=== PATIENT | female | born 1960 | race Caucasian/White ===

== ENCOUNTER → 2020-01-01 08:30 | Outpatient (BNVA) | payer BC, SELFPAY | PROVIDERS: PCP Internal Medicine; Visit Provider Orthopaedic Surgery | DX: Z76.89 Persons encountering health services in other specified circumstances (principal) ==

== ENCOUNTER 2020-11-04 08:13 | Outpatient (REF) | payer BC, SELFPAY ==
--- NOTE | ~2020-11-04 | MM_ITS ---
EXAMINATION: MM SCREENING DIGITAL BREAST TOMOSYNTHESIS, BILATERAL CLINICAL INFORMATION: Screening. Asymptomatic. The lifetime risk of breast cancer based on the Tyrer-Cuzick Model is 4%. COMPARISON: Mammography: 10/30/2019, 10/20/2018, 03/09/2016 TECHNIQUE: Digital breast tomosynthesis is performed in both the craniocaudal and mediolateral oblique views along with computer-aided detection (CAD). Synthesized 2D images are generated from the tomosynthesis. FINDINGS: There are scattered areas of fibroglandular density (ACR BI-RADS breast composition Category b). There are no significant masses, abnormal calcifications, or other abnormalities. Parenchymal pattern is similar to prior studies. No developing density. No significant changes. MM/MM tomosynthesis screening BI IMPRESSION: No mammographic evidence of malignancy. ASSESSMENT: BI-RADS 1: Negative RECOMMENDATION: Routine annual mammography screening. This patient's information was entered into a reminder system with a target due date for their next mammogram.
== END 2020-11-04 08:14 | disposition home or self-care (01) ==
LOC: HO.MAMMO 08:13
PROVIDERS: PCP Internal Medicine; Visit Provider Internal Medicine
DX: Z12.31 Encounter for screening mammogram for malignant neoplasm of breast (principal)
CPT/HCPCS: 77063; 77067

== ENCOUNTER 2025-03-14 13:52 | Observation (INO) | payer SELFPAY ==
[2025-03-14] VITALS (7 sets, daily range): BP systolic 132–161; BP diastolic 60–99; PULSE 84–100; RESP 18–24; TEMP 36.4–36.7; O2SAT 97–100; BMI 18.8
--- NOTE | ~2025-03-14 | CT_ITS ---
CLINICAL HISTORY: aorta dissection Exam: Contrast-enhanced CTA abdomen and pelvis with multiplanar reformats. Comparison: Same-day CT abdomen and pelvis. Findings: Abdomen CTA: Lung bases are clear. Liver is free of gross focal lesions and ductal dilatation. Gallbladder is absent. Spleen appears unremarkable. Pancreas and adrenal glands appear unremarkable. Kidneys appear unremarkable. No free intraperitoneal fluid or retroperitoneal masses or adenopathy. Bowel loops reveal no abnormal wall thickening or distention. Minimal colonic diverticulosis is present, without CT evidence of diverticulitis. Vascular: Abdominal aorta is within normal limits caliber with moderate calcific athero sclerosis. Celiac artery, superior mesenteric artery, and bilateral renal arteries with accessory left renal artery appear patent. Inferior mesenteric artery is patent. CTA pelvis: Uterus and adnexal structures are stable. Urinary bladder is free of gross filling defects. No pelvic masses, fluid or adenopathy. Vascular structures reveal severe stenoses of the right common iliac artery origin (6; 258 -272, also seen on 8; 32-36). More distally the bilateral common and external iliac arteries are opacified and normal caliber. Internal iliac arteries and branches are patent and normal caliber. Osseous structures reveal no destructive osseous lesions. Bilateral intact appearing hip arthroplasty hardware is present. Impression: 1. 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 2. Otherwise, no evidence of aortic dissection or acute aortic syndrome. This document has been electronically signed by: Onur Earl MD on 03/14/2025 20:35:22
--- NOTE | ~2025-03-14 | CT_ITS ---
CLINICAL HISTORY: flank pain + elevated LFTs CT abdomen and pelvis with IV contrast. COMPARISON: None provided. FINDINGS: Partially visualized lung bases are unremarkable. Cholecystectomy with associated moderate intrahepatic biliary ductal dilatation. No choledocholithiasis identified. No focal hepatic lesion. Normal spleen. Normal pancreas. Normal adrenal glands. Symmetric renal enhancement. Left renal cystic lesion measuring 0.3 cm, too small to further characterize. No hydronephrosis. Appendectomy. Mild colonic stool burden. No bowel obstruction. Mild distal colonic diverticulosis without evidence of diverticulitis. Thickening of the mucosa of the sigmoid colon in the vicinity of several diverticuli. No mesenteric or retroperitoneal lymphadenopathy. Moderate aortoiliac atherosclerotic vascular calcifications. Bilateral total hip arthroplasties partially visualized. Artifact from the arthroplasties limits evaluation of the portions of the pelvis. Visualized portions of the urinary bladder unremarkable. No adnexal mass identified. Grade 1 anterolisthesis of L4 on L5, degenerative. [id number] lower lumbar spondylosis. No acute fracture or suspicious bone lesion. IMPRESSION: 1. Moderate intrahepatic biliary ductal dilatation. No radiopaque choledocholithiasis identified. Consider MRCP for further characterization. 2. Distal colonic diverticulosis without evidence of diverticulitis. Thickening of the mucosa of the distal sigmoid colon favored to represent diverticulosis coli. Recommend correlation with recent colonoscopy. This document has been electronically signed by: Oscar Connor MD on 03/14/2025 17:58:00
--- NOTE | ~2025-03-14 | XR_ITS ---
EXAMINATION: XR FOOT, LEFT CLINICAL INFORMATION: pain, injury COMPARISON: None available. TECHNIQUE: AP, lateral, and oblique views of the left foot. FINDINGS: The bones and soft tissues are normal. No fracture. Alignment is anatomic. Joint spaces are maintained. XR/XR foot LT min 3V IMPRESSION: Unremarkable left foot Electronically signed by: Yevgeniy Wilson MD 03/14/2025 02:48 PM EST
--- NOTE | ~2025-03-14 | US_ITS ---
CLINICAL HISTORY: choledoco evaluation US abdomen limited. COMPARISON: CT abdomen and pelvis dated 03/14/25 at 17:14 EST Technique: Real time sonographic imaging, including color-flow imaging, was performed by the licensed clinical psychologist. Multiple insurance claim representative static images were saved for review. FINDINGS: Status post cholecystectomy. Common bile duct: 6 mm, normal. No free intraperitoneal fluid identified. IMPRESSION: 1. Common bile duct is normal in caliber. No choledocholithiasis identified on limited evaluation of the common bile duct by the hilum. This document has been electronically signed by: Oscar Connor MD on 03/14/2025 18:45:35
--- NOTE | ~2025-03-14 | XR_ITS ---
EXAMINATION: XR ANKLE, left CLINICAL INFORMATION: pain, injury COMPARISON: None available. TECHNIQUE: AP, lateral, and mortise views lower extremity joint, ankle. FINDINGS: Ankle mortise is congruent. There is no widening of the syndesmosis. Talar dome is intact. There are no calcaneal enthesophyte(s). XR/XR ankle LT min 3V IMPRESSION: Unremarkable ankle x-ray. Electronically signed by: Yevgeniy Wilson MD 03/14/2025 02:47 PM [facility]VIND
--- NOTE | 2025-03-14 14:17 | ED_ITS ---
HPI - General Adult General Chief complaint: Back Pain/Injury Stated complaint: hip pain, lt leg/ankle pain, back pain Time Seen by Provider: 03/14/25 14:16 Source: patient and EMS Mode of arrival: EMS Limitations: no limitations History of Present Illness ED Provider: Chelo Diaz PA-C HPI narrative: Patient is a 64 year old female with no reported medical history presenting to the emergency department today with left sided low back pain. Patient states that over the last week and a half she has had several episodes of injuring her back including twisting injuries with moving items and lifting injuries. Patient states that it would get better after a couple of days so she continued to do physically strenuous things. Patient states that now she is having significant low back spasms and it is not improving. Patient states that she takes no medications. Patient denies any other complaints at this time. Related Data Home Medications ?Medication ?Instructions ?Recorded ?Confirmed krill 1 cap PO BEDTIME 12/25/19 [id number] 300 mg-90 mg-24 mg-50 mg capsule (krill oil) Previous Rx's ?Medication ?Instructions ?Recorded amoxicillin 500 mg tablet 500 mg PO ONCE 1 day #4 tabs 05/10/20 Allergies Allergy/AdvReac Type Severity Reaction Status Date / Time codeine (CODEINE) Allergy Intermediate PROJECTILE Verified 03/14/25 14:14 VOMITING latex (LATEX) Allergy Intermediate RASH Verified 03/14/25 14:14 Review of Systems 2 Constitutional: Constitutional: Reports as per HPI Eyes: Eyes: Reports as per HPI ENT: Reports as per HPI Cardiovascular: Cardiovascular: Reports as per HPI Respiratory: Respiratory: Reports as per HPI Gastrointestinal: Gastrointestinal: Reports as per HPI Genitourinary: Genitourinary: Reports as per HPI Musculoskeletal: Musculoskeletal: Reports as per HPI Integumentary/Breasts: Skin/Breast: Reports as per HPI Neurologic: Reports as per HPI Psychiatric: Psychiatric: Reports as per HPI Endocrine: Endocrine: Reports as per HPI Hematologic/Lymphatic: Hematologic/Lymphatic: Reports as per HPI Allergic/Immunologic: Allergic/Immunologic: Reports as per HPI [facility] Past Medical History Attestation statement: The following information was validated with the patient. Source: old records reviewed and nursing notes reviewed Surgical History History of total right hip arthroplasty History of total left hip arthroplasty History of appendectomy History of surgery on wrist History of carpal tunnel release History of cholecystectomy Family History Family History Father No problems noted. Mother No problems noted. Son No problems noted. Daughter No problems noted. Brother No problems noted. Brother No problems noted. Sister No problems noted. Social History Social History Smoked in Last 30 Days: No Use of substances other than those prescribed or required for medical reasons: No Advance Directives: No Advance Directives Information Provided: Yes Do you have a plan to hurt others: No Plan Patient : No Physical Exam ED Vital Signs: Vital Signs - 24 hr 03/14/25 14:09 03/14/25 15:51 03/14/25 16:01 Temperature 98.0 F 97.6 F Pulse Rate 100 84 Respiratory Rate 24 H 22 H 18 Blood Pressure 147/95 H 138/76 Pulse Oximetry 98 100 Oxygen Delivery Method Room Air Room Air 03/14/25 18:36 03/14/25 20:00 03/14/25 21:55 Temperature 98.1 F 98.1 F Pulse Rate 92 93 84 Respiratory Rate 20 Blood Pressure 158/99 H 161/80 H 146/82 H Pulse Oximetry 99 100 97 Oxygen Delivery Method Room Air Room Air Room Air 03/14/25 23:44 Temperature 98.1 F Pulse Rate 84 Respiratory Rate 18 Blood Pressure 132/60 Pulse Oximetry 97 Oxygen Delivery Method Room Air BMI result Body Mass Index 18.8 Const General: cooperative, no acute distress, alert and awake Nutritional Appearance: well nourished Orientation/consciousness: patient oriented x3 HENMT Head: Yes normal to inspection and Yes atraumatic Ears: hearing grossly normal bilaterally and external ears normal General nose exam: Normal external nose present, no nasal discharge noted and no epistaxis Face and sinus: Yes normal facial exam, No abrasion and No laceration Mouth: Normal oral and palatal mucosa present, no drooling and no muffled voice Eyes General: appearance normal, both eyes and all related structures Periorbital: periorbital findings normal Eyelids: Yes eyelids normal Conjunctivae: conjunctivae normal Pupils: Equal, round and reactive pupils present EOM: EOMs intact bilaterally Neck Neck: Yes normal visual inspection and Yes full ROM Resp Effort & Inspection: normal respiratory effort and able to speak in complete sentences Neuro General: patient oriented x3, moves all extremities and CN's II-XI intact bilaterally Cranial nerves: Yes Equal, round and reactive pupils present Cognition (Neuro): normal cognition Extrem General: Yes normal to inspection, Yes full ROM and Yes capillary refill normal Psych Appearance: grossly normal Mental Status: mental status grossly normal Affect: normal affect Attitude: cooperative Thought process: Normal thought process present Thought content: Normal thought content present Insight: Good insight present (Psych) Course Course Course Narrative: Patient was signed out to me for back pain. Patient stated that she has left- sided posterior thorax back pain that radiates down to her left leg. Worsened with movement. Does feel like a back spasm to her. Patient is also incidentally found to have signs of transaminitis. She has extra hepatic ductal dilatation. She has history of cholecystectomy in the past. We will obtain an ultrasound to evaluate CBD size. She has no abdominal pain whatsoever. CT imaging obtained did not show any sign of spinal lesions. Discussed the case with Dr. Barton GI doctor does not think patient needs to be admitted for this transaminitis and imaging finding at this time. Patient is appropriate for outpatient follow up with GI Clinic. Patient is still having some muscle spasm down her left lower back. We will plan to give patient some p.o. Dilaudid to see if this will help. I did obtain a CT imaging for dissection evaluation. The patient has no sign of dissection however his incidental finding of right iliac artery stenosis. I do not think patient has a critical limb at this time. We will reassess patient. 1:32 AM 03/15/2025 (Karen Hannah DO): Patient's pain remains uncontrolled despite additional IV medication p.o. Dilaudid. Discussed the case with the hospitalist Dr. Leon Graham. Recommend IV Decadron and reassess. After IV Decadron patient is still complaining of pain. She stated at rest she feels much better. However she is unable to ambulate due to the pain. Patient has difficulty taking a step due to the pain. We will plan to admit the patient at this time. Medications Administered Discontinued Medications Generic Name Dose Route Start Last Admin Trade Name Freq PRN Reason Stop Dose Admin Acetaminophen 975 mg 03/14/25 19:23 03/14/25 19:40 Acetaminophen 325 Mg Tablet PO 03/14/25 19:24 975 mg ONCE ONE Administration Cyclobenzaprine HCl 5 mg 03/14/25 16:32 03/14/25 16:48 Cyclobenzaprine Hcl 5 Mg Tablet PO 03/14/25 16:33 5 mg ONCE ONE Administration Cyclobenzaprine HCl 10 mg 03/14/25 19:25 03/14/25 19:40 Cyclobenzaprine Hcl 10 Mg Tablet PO 03/14/25 19:26 10 mg ONCE ONE Administration Dexamethasone Sodium Phosphate 4 mg 03/14/25 23:46 03/15/25 00:09 Dexamethasone Sod Phosphate 4 Mg/Ml Vial IVPUSH 03/14/25 23:47 4 mg ONCE ONE Administration Diazepam 2.5 mg 03/14/25 14:21 03/14/25 14:32 Diazepam 10 Mg/2 Ml Cartridge IVPUSH 03/14/25 14:22 2.5 mg STAT STA Administration Diazepam 5 mg 03/14/25 17:54 03/14/25 18:37 Diazepam 5 Mg Tablet PO 03/14/25 17:55 5 mg ONCE ONE Administration Hydromorphone HCl 0.5 mg 03/14/25 15:02 03/14/25 15:51 Hydromorphone Hcl 0.5 Mg/0.5 Ml Syringe IVPUSH 03/14/25 15:03 0.5 mg ONCE ONE Administration Protocol Hydromorphone HCl 2 mg 03/14/25 20:43 03/14/25 20:57 Hydromorphone Hcl 2 Mg Tablet PO 03/14/25 20:44 2 mg ONCE ONE Administration Hydromorphone HCl 1 mg 03/14/25 23:11 03/14/25 23:41 Hydromorphone Hcl 1 Mg/Ml Syringe IVPUSH 03/14/25 23:12 1 mg ONCE ONE Administration Protocol Sodium Chloride 1,000 mls @ 999 mls/hr 03/14/25 15:45 03/14/25 17:11 Ns IV 03/14/25 16:45 Infused .Q1H1M MABEL Infusion Sodium Chloride 1,000 mls @ 999 mls/hr 03/14/25 19:30 03/14/25 21:06 Ns IV 03/14/25 20:30 Infused .Q1H1M MABEL Infusion Iohexol 100 ml 03/14/25 17:18 03/14/25 17:18 Iohexol 350 Mg/Ml 100 Ml Infus..Btl IV 03/14/25 17:19 85 ml ONCE ONE Administration Iohexol 100 ml 03/14/25 19:57 03/14/25 19:58 Iohexol 350 Mg/Ml 100 Ml Infus..Btl IV 03/14/25 19:58 80 ml ONCE ONE Administration Ketorolac Tromethamine 15 mg 03/14/25 14:21 03/14/25 14:32 Ketorolac Tromethamine 15 Mg/Ml Vial IVPUSH 03/14/25 14:22 15 mg ONCE ONE Administration Lidocaine 1 patch 03/14/25 19:25 03/14/25 19:40 Lidocaine 4 % Patch Adh..Patch TRANSDERMA 03/14/25 19:26 1 patch ONCE ONE Administration Protocol Ondansetron HCl 4 mg 03/14/25 15:02 03/14/25 15:51 Ondansetron Hcl 4 Mg/2 Ml Vial IVPUSH 03/14/25 15:03 4 mg ONCE ONE Administration Oxycodone HCl 5 mg 03/14/25 19:25 03/14/25 19:40 Oxycodone Hcl Immed Release 5 Mg Tablet PO 03/14/25 19:26 5 mg ONCE ONE Administration Prednisone 20 mg 03/14/25 17:54 03/14/25 18:37 Prednisone 20 Mg Tablet PO 03/14/25 17:55 20 mg ONCE ONE Administration Medical Decision Making Medical Decision Making [facility] Narrative: Patient is a 64 year old female with no reported medical history presenting to the emergency department today with left sided low back pain. Patient's physical exam was as noted in the physical exam portion of this note. Patient's blood work showed an elevated WBC count of 12.9, AST of 109, ALT of 272. Patient's CT abd/pelvis is pending. Patient received IV valium, dilaudid, zofran, and flexeril which, upon re- evaluation, she stated it helped her symptoms some. I explained my physical exam findings as well as all test results to the patient. I answered all questions asked by the patient. Patient signed out to Dr. Hannah pending CT abd/pelvis and re-evaluation. Differential Diagnosis Differential Diagnoses: The differential diagnosis associated with the presentation includes Back pain Herniated disc Admission/Observation Consideration of admission/observation: Escalation of care including admission/observation considered Patient's disposition will be determined after CT abd/pelvis. Lab Data [facility] Lab Attestation statement: I reviewed the patient's lab results. My interpretation of these results are in the [facility] Rationale portion of this note. 03/14/25 15:14 03/14/25 15:14 Labs: Lab Results 03/14/25 03/14/25 Range/Units 15:14 20:18 WBC 12.9 H (4.8-10.8) X10*3/uL RBC 5.20 (4.20-5.50) X10*6/uL Hgb 15.3 (12.0-16.0) g/dl Hct 44.0 (37.0-47.0) % MCV 84.6 (80.0-98.0) fL MCH 29.4 (27.0-33.0) pg MCHC 34.8 (31.0-35.0) g/dl RDW 13.0 (11.0-16.0) % Plt Count 440 H (160-400) X10*3/uL MPV 9.1 L (9.4-12.3) fL Immature Gran % (Auto) 0.3 (0.0-0.4) % Neut % (Auto) 79.2 H (45-73) % Lymph % (Auto) 16.6 L (20-40) % [place] % (Auto) 3.4 (2-11) % Eos % (Auto) 0.0 (0-4) % Baso % (Auto) 0.5 (0-2) % Lymph # (Auto) 2.1 (1.2-4.9) X10*3/uL [place] # (Auto) 0.4 (0.1-1.2) X10*3/uL Eos # (Auto) 0.0 (0.0-0.4) X10*3/uL Baso # (Auto) 0.1 (0.0-0.2) X10*3/uL Abs Immat Gran (auto) 0.04 H (0.00-0.03) X10*3/uL Absolute Neuts (auto) 10.2 H (2.0-8.3) x10*3/uL Absolute Nucleated RBC 0.000 (0.0-0.012) X10*3/uL Nucleated RBC % (auto) 0.0 (0.0-0.2) /100WBC ESR 10 (1-30) MM/HR Sodium 140 (135-145) mmol/L Potassium 3.9 (3.3-5.1) mmol/L Chloride 108 (96-108) mmol/L Carbon Dioxide 21 L (22-29) mmol/L Anion Gap 15 (12-20) BUN 18 H (9-16) mg/dL Creatinine 0.76 (0.5-1.4) mg/dL Estim Creat Clear Calc 55.8 Estimated GFR > 60 Random Glucose 101 (60-115) mg/dL Calcium 9.6 (8.4-10.2) mg/dL Total Bilirubin 0.8 (0.0-1.0) mg/dL AST 109 H (5-31) U/L ALT 272 H (0-31) U/L Alkaline Phosphatase 107 (39-117) U/L Total Creatine Kinase 51 (26-140) U/L C-Reactive Protein 0.26 (< or = 0.50) mg/dL Total Protein 7.4 (6.5-8.0) g/dL Albumin 4.8 (3.5-5.0) g/dL Urine Color Yellow Urine Appearance Clear Urine pH 6.0 (5.0-9.0) Ur Specific [place] >= 1.030 H (1.005-1.025) Urine Protein Negative (Neg-Trace) mg/dL Urine Glucose (UA) Negative (Negative) mg/dL Urine Ketones 40 (Negative) mg/dL Urine Blood Trace H (Negative) Urine Nitrite Negative (Negative) Ur Leukocyte Esterase Negative (Negative) Urine RBC 0-2 (0-2) /HPF Urine WBC 0-5 (0-5) /HPF Ur Squamous Epith Cells 3-5 (0-2) /HPF Urine Bacteria Trace (None Seen) Hyaline Casts 0-2 (0-2) /LPF Independent Historian Clinical information obtained from an independent historian. History obtained from or confirmed by: EMS (EMS provided additional history and confirmed the history provided by the patient. ) Critical Care Time Critical Care Time Critical Care Time: Yes Total Critical Care Time: 46 Attestation: I spent 46 minutes of Critical Care Time with this patient. This does not include time spent on separately reported billable procedures. Discharge Plan Discharge Clinical Impression: Back pain, Gluteal tendinitis of left buttock Patient Disposition: Admitted As Inpatient Print Language: Khmer
[2025-03-14] MEDS: diazePAM 10 MG/2 ML CARTRIDGE 2.5 MG IVPUSH (14:32)
[2025-03-14 15:18] LABS: MANUAL DIFF FLAG NO
[2025-03-14 15:26] LABS: Hematocrit 44.0 % (37.0-47.0); Hemoglobin 15.3 g/dl (12.0-16.0); Imm Gran Abs Auto 0.04 X10*3/uL (0.00-0.03); Imm Gran Pct Auto 0.3 % (0.0-0.4); Lymphocytes Absolute Auto 2.1 X10*3/uL (1.2-4.9); Mean Corpuscular HGB Conc 34.8 g/dl (31.0-35.0); Mean Corpuscular Hemoglobin 29.4 pg (27.0-33.0); Mean Corpuscular Volume 84.6 fL (80.0-98.0); NRBC Abs Auto 0.000 X10*3/uL (0.0-0.012); NRBC Pct Auto 0.0 /100WBC (0.0-0.2); Platelet Count 440 X10*3/uL (160-400); Red Blood Count 5.20 X10*6/uL (4.20-5.50); White Blood Count 12.9 X10*3/uL (4.8-10.8)
[2025-03-14 15:34] LABS: Alanine Aminotransferase 272 U/L (0-31); Albumin Level 4.8 g/dL (3.5-5.0); Alkaline Phosphatase 107 U/L (39-117); Anion Gap 15 (12-20); Aspartate Amino Transferase 109 U/L (5-31); Blood Urea Nitrogen 18 mg/dL (9-16); Calcium 9.6 mg/dL (8.4-10.2); Carbon Dioxide 21 mmol/L (22-29); Chloride 108 mmol/L (96-108); Creatinine Clr Calc Pharmacy 55.8; Estimated Glomerular Filt Rate > 60; Potassium 3.9 mmol/L (3.3-5.1); Sodium 140 mmol/L (135-145); Total Protein 7.4 g/dL (6.5-8.0)
[2025-03-14] MEDS: iohexoL 350 MG/ML 100 ML INFUS..BTL IV ×2 (17:18→19:58)
[2025-03-14] MEDS: oxyCODONE HCl Immed Release 5 MG TABLET PO (19:40)
[2025-03-14] MEDS: Lidocaine 4 % Patch ADH..PATCH 1 PATCH TRANSDERMA (19:40)
--- OUTSIDE RECORDS SUMMARY | 2025-03-14 20:02 | XMS_ITS | Clinical Summary ---
Author Organization [facility] Prior to 08/26/[address] [place] [id number] Care Team Providers Care Hose Seamer Name Role Phone Mary Hill APRN Primary Care Provider [phone] Allergies Active Allergy Reactions Criticality Noted Date Comments Codeine Nausea And Vomiting 07/26/2017 Latex 07/26/2017 Medications Medication Sig Dispensed Refills Start Date End Date Status Krill Oil 500 MG CAPS Take 500 mg by mouth. 0 Active aspirin EC 81 MG tablet Take 81 mg by mouth daily. 0 Active Multiple Vitamin (MULTI VITAMIN PO) Take by mouth. 0 Active Active Problems Problem Noted Date Diagnosed Date Primary osteoarthritis of hip 07/26/2017 Left shoulder pain 07/26/2017 Cervical neuropathy 07/26/2017 Family History Medical History Relation Name Comments Alcohol abuse Father Hypertension Father Kidney disease Father Arthritis Sister 1 Relation Name Status Comments Brother 1 Alive Brother 2 Alive Father Alive Mother (Age 46) av malform ation complications fromsurgery Sister 1 Alive Sister 2 Alive Social History Tobacco Use Types Packs/Day Years Used Date Smoking Tobacco: Every Day Cigarettes 1 36 Started: 07/26/1977 Smokeless Tobacco: Never Alcohol Use Standard Drinks/Week Comments Yes 1 (1 standard drink = 0.6 oz pur e alcohol) social interrmittent Sex and Gender Information Value Date Recorded Sex Assigned at Not on file Gender Identity Not on file Sexual Orientation Not on file Last Filed Vital Signs Vital Sign Reading Time Taken Comments Blood Pressure 120/70 07/26/2017 10:04 AM EDT Pulse - - Temperature - - Respiratory Rate - - Oxygen Saturation - - Inhaled Oxygen Concentration - - Weight 47.6 kg (105 lb) 07/26/2017 10:04 AM EDT Height 160 cm (5' 3 ) 07/26/2017 10:04 AM EDT Body Mass Index 18.6 07/26/2017 10:04 AM EDT Plan of Treatment Health Maintenance Due Date Last Done Comments Hepatitis C Screening 1961 COVID-19 Vaccine (#1) 01/06/1962 Pneumococcal Vaccine (1 of 2 - PCV) 07/08/1967 Depression Screening 1973 Preventative Health Evaluation 07/08/1979 DTap / Tdap / Td (1 - Tdap) 1980 Cervical Cancer Screening (P ap Smear) 1982 Colon Cancer Screening (Colonoscopy) 2006 Breast Cancer Screening (Mammogram) 07/08/2011 Shingrix-Zoster Vaccine (1 of 2) 07/08/2011 Influenza Vaccine (#1) 2024 RSV Adult > 60+ Yrs or Pregn ant (1 - 1-dose 75+ series) 2036 Hepatitis B Vaccines Aged Out No long er eligible based on patient's age to complete this topic RSV Ped < 20 months Aged Out No longe r eligible based on patient's age to complete this topic Care Teams Hose Seamer Relationship Specialty Start Date End Date Mary Hill, TRANSPORTATION SALES CONSULTANT [address] [place] [address] PCP - General Family Medicine 06/30/17
[2025-03-14 20:25] LABS: Appearance Urine Clear; Glucose Urine UA Negative (Negative); PH 6.0 (5.0-9.0); Specific Gravity - Urine >= 1.030 (1.005-1.025); UMIC TRIGGER UACC YES
[2025-03-15] VITALS (8 sets, daily range): BP systolic 128–147; BP diastolic 63–75; PULSE 78–95; RESP 14–18; TEMP 36.2–36.9; O2SAT 96–98; BMI 18.8
--- NOTE | 2025-03-15 03:01 | P.HPHOSP_ITS ---
History of Present Illness Date of Service: 03/15/25 Chief Complaint: back pain A 64-year-old female presented to the emergency department with a 5-day history of progressively worsening lower back pain, primarily localized to the gluteal area. The pain is described as sharp, rated 7?10 out of 10, radiating down the posterior aspect of her leg, and is aggravated by walking. She initially injured her lower back several weeks ago while performing outdoor work, and more recently, she missed a step on the stairs at home, resulting in an ankle twist and a fall while lifting heavy objects. The pain have led to decreased mobility and disrupted sleep. At the time of assessment, her pain had improved to 6/10 following administration of 4 mg IV Decadron. Denied bowel or bladder incontinence, chill, fever and progressive neurological deficits. Pain was resistant to multiple analgesics and muscle relaxants given earlier during her ED stay. Laboratory: WBC 12.9, platelets 440. Transaminitis AST 109 U/L and ALT 272 U/L; bilirubin within normal limits. Renal function is preserved and electrolytes are unremarkable. Urinalysis is notable for high specific gravity (>=.030), trace ketones, and trace blood, but otherwise unremarkable. ESR, CRP are not elevated. Imaging: CT abdo and pelvis: Moderate intrahepatic biliary ductal dilatation. No radiopaque choledocholithiasis identified. Consider MRCP for further characterization. Distal colonic diverticulosis without evidence of diverticulitis. Thickening of the mucosa of the distal sigmoid colon favored to represent diverticulosis coli. Recommend correlation with recent colonoscopy. Abdo US: Cholecystectomy. Common bile duct is normal in caliber. No choledocholithiasis identified on limited evaluation of the common bile duct by the hilum. 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 Otherwise, no evidence of aortic dissection or acute aortic syndrome. [facility] Family History Father No problems noted. Mother No problems noted. Son No problems noted. Daughter No problems noted. Brother No problems noted. Brother No problems noted. Sister No problems noted. Surgical History History of total right hip arthroplasty History of total left hip arthroplasty History of appendectomy History of surgery on wrist History of carpal tunnel release History of cholecystectomy Social History Smoked in Last 30 Days: No Use of substances other than those prescribed or required for medical reasons: No Advance Directives: No Advance Directives Information Provided: Yes Do you have a plan to hurt others: No Plan Patient : No Meds Allergies Allergy/AdvReac Type Severity Reaction Status Date / Time codeine (CODEINE) Allergy Intermediate PROJECTILE Verified 03/14/25 14:14 VOMITING latex (LATEX) Allergy Intermediate RASH Verified 03/14/25 14:14 Active Medications: Current Medications Acetaminophen (Acetaminophen 325 Mg Tablet) 650 mg PO Q6H PRN PRN Reason: Pain, Mild 1-3,fever,headache Calcium Carbonate (Calcium Carbonate 750 Mg Tab.Chew) 750 mg PO Q4H PRN PRN Reason: Heartburn Enoxaparin Sodium (Enoxaparin Sodium 40 Mg/0.4 Ml Syringe) 40 mg SUBCUT Q24H [facility] Magnesium Hydroxide (Milk Of Magnesia 30 Ml Oral.Susp) 30 ml PO DAILY PRN PRN Reason: Constipation Melatonin (Melatonin 3 Mg Tablet) 3 mg PO BEDTIME PRN PRN Reason: Insomnia Ondansetron HCl (Ondansetron Hcl 4 Mg/2 Ml Vial) 4 mg IVPUSH Q8H PRN PRN Reason: Nausea and Vomiting Polyethylene Glycol (Polyethylene Glycol 3350 17 Gm Powd.Pack) 17 gm PO DAILY [facility] Sodium Chloride (0.9 % Sodium Chloride Flush 3 Ml Syringe) 3 ml IVFLUSH QSHIFT [facility] Home Medications ?Medication ?Instructions ?Recorded ?Confirmed ?Last Taken ?Type krill 1 cap PO BEDTIME 12/25/19 Unknown History [id number] 300 mg-90 mg-24 mg-50 mg capsule (krill oil) Physical Exam 2 Vital Signs and Narrative: Vital Signs: Last Vital Signs Temp 97.5 F 03/15/25 01:49 Pulse 93 03/15/25 01:49 Resp 18 03/14/25 23:44 BP 138/66 03/15/25 01:49 Pulse Ox 96 03/15/25 01:49 O2 Del Method Room Air 03/15/25 01:49 BMI result Body Mass Index 18.8 General: Alert, oriented, in no acute distress and cooperative. HEENT: Head normocephalic, atraumatic. PER, EOMI. Sclerae anicteric, conjunctiva clear. Oropharynx without erythema or exudate. Mucous membranes moist. Neck: Supple Heart: RRR, no murmurs Lungs: CTABL. No wheezes, rales, or rhonchi. Normal respiratory effort. Abdomen: Soft, non tenderness, nondistended, normoactive bowel sounds. Extremities: No calf tenderness bilaterally, no swelling Musculoskeletal: Full range of motion except mild discomfort in the left sacral area. Tenderness with palpation in the gluteal region Skin: Warm/Dry. No pallor. No jaundice Neurologic: No acute focal neurological deficit observered during the evaluation. Motor 5/5 b/l LE Results Labs 03/14/25 15:14 03/14/25 15:14 Labs: Laboratory Results - last 24 hr 03/14/25 03/14/25 15:14 20:18 MCV 84.6 MCH 29.4 MCHC 34.8 RDW 13.0 Plt Count 440 H MPV 9.1 L Immature Gran % (Auto) 0.3 Neut % (Auto) 79.2 H Lymph % (Auto) 16.6 L [place] % (Auto) 3.4 Eos % (Auto) 0.0 Baso % (Auto) 0.5 Lymph # (Auto) 2.1 [place] # (Auto) 0.4 Eos # (Auto) 0.0 Baso # (Auto) 0.1 Abs Immat Gran (auto) 0.04 H Absolute Neuts (auto) 10.2 H Absolute Nucleated RBC 0.000 Nucleated RBC % (auto) 0.0 ESR 10 Anion Gap 15 Estim Creat Clear Calc 55.8 Estimated GFR > 60 Random Glucose 101 Calcium 9.6 Total Bilirubin 0.8 AST 109 H ALT 272 H Alkaline Phosphatase 107 Total Creatine Kinase 51 C-Reactive Protein 0.26 Total Protein 7.4 Albumin 4.8 Urine Color Yellow Urine Appearance Clear Urine pH 6.0 Ur Specific [place] >= 1.030 H Urine Protein Negative Urine Glucose (UA) Negative Urine Ketones 40 Urine Blood Trace H Urine Nitrite Negative Ur Leukocyte Esterase Negative Urine RBC 0-2 Urine WBC 0-5 Ur Squamous Epith Cells 3-5 Urine Bacteria Trace Hyaline Casts 0-2 Imaging Radiologist's Impressions: Impressions Ankle X-Ray 03/14/25 14:35 IMPRESSION: Unremarkable ankle x-ray. Electronically signed by: Yevgeniy Wilson MD 03/14/2025 02:47 PM EST RP Foot X-Ray 03/14/25 14:35 IMPRESSION: Unremarkable left foot Electronically signed by: Yevgeniy Wilson MD 03/14/2025 02:48 PM EST RP Assessment and Plan (1) Intractable low back pain: Status: Acute Plan A 64-year-old female with a history of bilateral hip arthroplasty and no reported chronic medical conditions presents with [id number] left-sided low back pain radiating to the left leg, worsened by movement. She has had multiple recent lifting and twisting injuries. On exam, she is alert, oriented, and in no acute distress, with normal neurological findings. Her pain has not responded to several analgesics and muscle relaxants, but she experienced some relief after receiving Decadron. Despite this, she remains unable to walk because of the severity of her pain. Incidentally, she is found to have transaminitis and extrahepatic ductal dilatation on imaging, but no abdominal pain. Acute on subacute lower back pain, differentials diagnosis includes the following: -Musculoskeletal strain/sprain: Most likely, given the history of recent physical exertion and injury. -Lumbar radiculopathy: Considered due to radiating pain and inability to ambulate. Plan Admit to observation for pain management, physical therapy assessment, and monitoring of functional status, given inability to ambulate and refractory pain. -Decadron 4 mg IV x one dose ordered. Consider a short course of corticosteroids if radicular symptoms persist and no contraindications. -Oxycodone 2.5 mg-5 mg q 4hrs PRN for moderate to severe pain respectively -Acetaminophen 650 for my pain as needed (no greater than 2 g in 24 hours) Leukocytosis: The patient has been afebrile. Infectious etiology negative thus far. -CBC pending for a.m. -Continue to monitor fever curve Incidental findings: Asymptomatic transaminitis: Follow-up with primary career discovery teacher/GI for close monitoring and management. Avoid hepatotoxic agents. 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
--- NOTE | 2025-03-15 03:54 | HO.NURTONUR ---
64 F from home- stated having severe back pain/spasms after she turned and picked up something, did have a fall recently up some stairs at her home. all xr, CT neg. 20g IV right FA. pt has received many many meds and finally started sleeping after decadron IV. attempted to walk and only took one or two steps and said spasms started back. she is sleeping right now. look at the MAY bc too many to list here. I reached out to hospitalist for some prn pain meds so she would have them when she wakes up.
[2025-03-15] MEDS: oxyCODONE HCl Immed Release 5 MG TABLET PO ×3 (04:41→16:59)
[2025-03-15 08:29] LABS: Alanine Aminotransferase 315 U/L (0-31); Albumin Level 4.4 g/dL (3.5-5.0); Alkaline Phosphatase 104 U/L (39-117); Aspartate Amino Transferase 125 U/L (5-31); Total Protein 6.9 g/dL (6.5-8.0)
--- NOTE | 2025-03-15 08:43 | PHA.MEDREC ---
Addendum entered by Chivo Lemus RPh 03/15/25 09:03: MED REC REVIEWED BY [facility] Original Note: Pharmacy Consult ? Medication Reconciliation Pharmacy has completed the medication reconciliation. Spoke with pt and she confirmed she is not taking anything for prescription medications at this time and takes some OTC supplements but does not need them while impatient.
[2025-03-15] MEDS: 0.9 % Sodium Chloride Flush 3 ML SYRINGE IVFLUSH ×2 (09:35→17:02)
--- NOTE | 2025-03-15 15:24 | PC.NURSE ---
Pt states she has not voided today, pt bladder scanned for 158ml. CARLOS Cooper made aware. Pt educated on the importance of PO water intake. Pt states she has not been drinking as much as she usually does and will attempt to increase PO water intake.
--- NOTE | 2025-03-15 15:54 | MHC.CM.PN ---
NOBLES delivered. Patient lives in a home w/ her . Independent w/ ADL's/iADL's. Denies use of services or DME. PCP Dr Bedoya - though she isn't sure when her last visit was or if she is active. Will f/u. Reports HCP is 1) Luis Miguel and 2) daughter Michaela. Copy requested. No active insurance. FS working with patient to apply for [employer], but unsure if she will qualify. PT rec outpatient services - will pursue when insurance in place. DP: Home w/ who will transport. CM will continue to follow.
--- NOTE | 2025-03-15 17:05 | PM.EVENT ---
Event Note Date of Service: 03/15/25 Event Note: seen and examined this morning follow up for back pain back pain located SI joint/left buttock, primarily left side seen by PT, noted to have leg length discrepancy, pain somewhat better after manipulation flexeril, toradol prn received decadron this am remainder of plan as per admission H&P med rec done, not on any baseline meds Time Spent With Patient Time: Total time managing care of this patient today ____ minutes.
[2025-03-15] MEDS: Lactated Ringers 1,000 ML 80 ML IVCONT (17:47)
[2025-03-16] VITALS (7 sets, daily range): BP systolic 114–152; BP diastolic 58–78; PULSE 75–93; RESP 16–18; TEMP 36.3–36.8; O2SAT 96–98
[2025-03-16] MEDS: oxyCODONE HCl Immed Release 5 MG TABLET PO ×6 (01:00→22:19)
[2025-03-16] MEDS: Lactated Ringers 1,000 ML 80 ML IVCONT ×2 (05:19→17:50)
[2025-03-16 06:48] LABS: MANUAL DIFF FLAG NO
[2025-03-16 06:51] LABS: Hematocrit 39.2 % (37.0-47.0); Hemoglobin 13.4 g/dl (12.0-16.0); Imm Gran Abs Auto 0.05 X10*3/uL (0.00-0.03); Imm Gran Pct Auto 0.4 % (0.0-0.4); Lymphocytes Absolute Auto 3.8 X10*3/uL (1.2-4.9); Mean Corpuscular HGB Conc 34.2 g/dl (31.0-35.0); Mean Corpuscular Hemoglobin 29.5 pg (27.0-33.0); Mean Corpuscular Volume 86.2 fL (80.0-98.0); NRBC Abs Auto 0.000 X10*3/uL (0.0-0.012); NRBC Pct Auto 0.0 /100WBC (0.0-0.2); Platelet Count 394 X10*3/uL (160-400); Red Blood Count 4.55 X10*6/uL (4.20-5.50); White Blood Count 13.3 X10*3/uL (4.8-10.8)
[2025-03-16 07:09] LABS: Alanine Aminotransferase 184 U/L (0-31); Albumin Level 4.0 g/dL (3.5-5.0); Alkaline Phosphatase 79 U/L (39-117); Aspartate Amino Transferase 40 U/L (5-31); Total Protein 6.2 g/dL (6.5-8.0)
[2025-03-16 08:20] LABS: HBS Num1 0.00 mIU/mL (0-7.99); HBc Num1 0.05 S/CO (0.00-0.79); HBsAGNum1 0.27 S/CO (0.00-0.99); Hepatitis A Antibody IgM 0.16 Index (0-0.79); Hepatitis B Surface Antigen Negative (Negative); ~HepC Num1 0.06 S/CO (0.00-0.79); ~Hepatitis A Antibody IgM Nonreactive (Nonreactive); ~Hepatitis B Surface Antibody NONREACTIVE (Nonreactive); ~Hepatitis C Antibody Nonreactive (Nonreactive)
--- NOTE | 2025-03-16 13:22 | HO.PM.IMPN ---
Subjective Subjective Date of Service: 03/16/25 Interval History: seen and examined this morning follow up for back pain reporting pain left glute primarily no abdominal pain Review of Systems Review of Systems: Yes all other systems are reviewed and are negative Constitutional Constitutional: Denies chills and Denies fever(s) Cardiovascular Cardiovascular: Denies chest pain and Denies palpitations Endocrine Endocrine: Denies palpitations Physical Exam Vital Signs: Vital Signs: Last Vital Signs Temp 98.1 F 03/16/25 11:52 Pulse 89 03/16/25 12:17 Resp 16 03/16/25 11:52 BP 141/70 H 03/16/25 12:17 Pulse Ox 97 03/16/25 12:17 O2 Del Method Room Air 03/16/25 11:52 BMI result Body Mass Index 18.8 Const: General: cooperative, alert and awake Nutritional Appearance: thin Orientation/consciousness: patient oriented x3 Resp: Effort & Inspection: normal respiratory effort, able to speak in complete sentences, no respiratory distress and no use of accessory muscles Auscultation: clear to auscultation bilaterally Cardio: Rate: regular rate GI: Inspection: No distended Palpation (GI): Soft to palpation and nontender Neuro: General: patient oriented x3, moves all extremities and CN's II-XI intact bilaterally Extrem: Other: left glute muscular tenderness Objective Data Active Medications Acetaminophen (Acetaminophen 325 Mg Tablet) 650 mg PO Q6H PRN PRN Reason: Pain, Mild 1-3,fever,headache Last Admin: 03/16/25 13:04 Dose: 650 mg Documented By: ANGELINA Calcium Carbonate (Calcium Carbonate 750 Mg Tab.Chew) 750 mg PO Q4H PRN PRN Reason: Heartburn Cyclobenzaprine HCl (Cyclobenzaprine Hcl 5 Mg Tablet) 5 mg PO TID PRN PRN Reason: Muscle Spasm Last Admin: 03/16/25 11:12 Dose: 5 mg Documented By: ANGELINA Enoxaparin Sodium (Enoxaparin Sodium 40 Mg/0.4 Ml Syringe) 40 mg SUBCUT Q24H [facility] Last Admin: 03/16/25 07:17 Dose: 40 mg Documented By: ANGELINA Lactated Ringer's (Lr) 1,000 mls @ 80 mls/hr IVCONT .[id number] [facility] Last Admin: 03/16/25 05:19 Dose: 80 mls/hr Documented By: ANGELINA Ketorolac Tromethamine (Ketorolac Tromethamine 15 Mg/Ml Vial) 15 mg IVPUSH Q6H PRN PRN Reason: Pain, Moderate(Pain Scale 4-6) Last Admin: 03/16/25 07:17 Dose: 15 mg Documented By: ANGELINA Magnesium Hydroxide (Milk Of Magnesia 30 Ml Oral.Susp) 30 ml PO DAILY PRN PRN Reason: Constipation Melatonin (Melatonin 3 Mg Tablet) 3 mg PO BEDTIME PRN PRN Reason: Insomnia Naloxone HCl (Naloxone Hcl 0.4 Mg/Ml Vial) 0.1 mg IVPUSH Q2M PRN PRN Reason: Respiratory Rate < 10 Omeprazole (Omeprazole 20 Mg Capsule.Dr) 20 mg PO DAILY@0630 [facility] Last Admin: 03/16/25 05:19 Dose: 20 mg Documented By: ANGELINA Ondansetron HCl (Ondansetron Hcl 4 Mg/2 Ml Vial) 4 mg IVPUSH Q8H PRN PRN Reason: Nausea and Vomiting Oxycodone HCl (Oxycodone Hcl Immed Release 5 Mg Tablet) 2.5 mg PO Q4H PRN PRN Reason: Pain, Moderate(Pain Scale 4-6) Oxycodone HCl (Oxycodone Hcl Immed Release 5 Mg Tablet) 5 mg PO Q4H PRN PRN Reason: Pain, Severe (Pain Scale 7-10) Last Admin: 03/16/25 13:04 Dose: 5 mg Documented By: ANGELINA Polyethylene Glycol (Polyethylene Glycol 3350 17 Gm Powd.Pack) 17 gm PO DAILY [facility] Last Admin: 03/16/25 07:17 Dose: 17 gm Documented By: ANGELINA Prednisone (Prednisone 20 Mg Tablet) 60 mg PO DAILY [facility] Last Admin: 03/16/25 09:17 Dose: 60 mg Documented By: ANGELINA Sodium Chloride (0.9 % Sodium Chloride Flush 3 Ml Syringe) 3 ml IVFLUSH QSHIFT [facility] Last Admin: 03/16/25 06:24 Dose: Not Given Documented By: ANGELINA Non-Admin Reason: IV Running Labs 03/16/25 05:31 03/14/25 15:14 Labs: Laboratory Results - last 24 hr 03/16/25 05:31 MCV 86.2 MCH 29.5 MCHC 34.2 RDW 13.3 Plt Count 394 MPV 9.7 Immature Gran % (Auto) 0.4 Neut % (Auto) 62.0 Lymph % (Auto) 28.9 [place] % (Auto) 6.4 Eos % (Auto) 1.7 Baso % (Auto) 0.6 Lymph # (Auto) 3.8 [place] # (Auto) 0.9 Eos # (Auto) 0.2 Baso # (Auto) 0.1 Abs Immat Gran (auto) 0.05 H Absolute Neuts (auto) 8.2 Absolute Nucleated RBC 0.000 Nucleated RBC % (auto) 0.0 Total Bilirubin 0.4 Direct Bilirubin 0.2 AST 40 H ALT 184 H Alkaline Phosphatase 79 Total Protein 6.2 L Albumin 4.0 Hepatitis A IgM Ab Nonreactive Hep Bs Antigen Negative Hep Bs Antibody NONREACTIVE Hep B Core Total Ab Nonreactive Hepatitis C Ab (EIA) Nonreactive Assessment and Plan (1) Intractable low back pain: Status: Acute Plan A 64-year-old female with a history of bilateral hip arthroplasty and no reported chronic medical conditions presents with [id number] left-sided low back pain radiating to the left leg, worsened by movement. She has had multiple recent lifting and twisting injuries. On exam, she is alert, oriented, and in no acute distress, with normal neurological findings. Her pain has not responded to several analgesics and muscle relaxants, but she experienced some relief after receiving Decadron. Despite this, she remains unable to walk because of the severity of her pain. Incidentally, she is found to have transaminitis and extrahepatic ductal dilatation on imaging, but no abdominal pain. Acute on chronic lower back pain pain primarily in left glute/SI join area continue PT, muscle relaxers, moist heat, NSAIDs. attempt to transition to all po meds Leukocytosis: The patient has been afebrile. Infectious etiology negative thus far. may be due to steroids Incidental findings: Asymptomatic transaminitis: trending down. no abdominal pain. abdominal US negative. hepatitis profile negative. Follow-up with primary complex care nurse/GI for close monitoring and management. Avoid hepatotoxic agents. Severe stenosis of the right common iliac artery origin: outpatient referral to vascular surgery VTE: Lovenox Code: Full code Quality Stroke Does the patient have a stroke diagnosis?: No VTE Prior VTE?: No VTE Risk Level:: Medical - moderate - high VTE Device Contraindication: Treatment Not Indicated VTE Drug Contraindication: N/A - Med Ordered
[2025-03-16] MEDS: 0.9 % Sodium Chloride Flush 3 ML SYRINGE IVFLUSH (15:24)
--- NOTE | 2025-03-16 16:21 | MHC.CM.PN ---
PT NOT YET MEDICALLY CLEARED, STILL ON IV PAIN MEDS PLAN TO DC TOMORROW, HOME VIA PRIVATE TRANSPORT
[2025-03-17 03:57] VITALS: BP 144/67; PULSE 72; RESP 16; TEMP 36.2; O2SAT 99
[2025-03-17] MEDS: Lactated Ringers 1,000 ML 80 ML IVCONT (05:35)
[2025-03-17 08:00] VITALS: BP 164/74; PULSE 65; RESP 18; TEMP 36.1; O2SAT 98
[2025-03-17] MEDS: oxyCODONE HCl Immed Release 5 MG TABLET PO ×3 (08:16→20:24)
--- NOTE | 2025-03-17 10:21 | P.PNIM_ITS ---
Subjective Subjective Date of Service: 03/17/25 Interval History: seen and examined this morning follow up for back pain reporting pain left glute primarily still having pain after stretching Review of Systems Review of Systems: Yes all other systems are reviewed and are negative Constitutional Constitutional: Denies chills and Denies fever(s) Cardiovascular Cardiovascular: Denies chest pain and Denies palpitations Endocrine Endocrine: Denies palpitations Physical Exam 2 Exam: Exam: Appearing in no acute distress head is normocephalic atraumatic eyes pupils are PERRLA sclera is anicteric mouth throat mucous membranes are intact and moist neck is supple no lymphadenopathy, no JVD noted lung sounds are clear to auscultation heart regular rate rhythm, clear S1, S2 positive bowel sounds, abdomen is soft, nontender neuro patient is alert x3, no focal deficits Vital Signs: Vital Signs: Last Vital Signs Temp 96.9 F 03/17/25 08:00 Pulse 65 03/17/25 08:00 Resp 18 03/17/25 08:00 BP 164/74 H 03/17/25 08:00 Pulse Ox 98 03/17/25 08:00 O2 Del Method Room Air 03/17/25 08:00 BMI result Body Mass Index 18.8 Objective Data Active Medications Acetaminophen (Acetaminophen 325 Mg Tablet) 650 mg PO Q6H PRN PRN Reason: Pain, Mild 1-3,fever,headache Last Admin: 03/16/25 22:18 Dose: 650 mg Documented By: JOAN Comments: per pt request Calcium Carbonate (Calcium Carbonate 750 Mg Tab.Chew) 750 mg PO Q4H PRN PRN Reason: Heartburn Cyclobenzaprine HCl (Cyclobenzaprine Hcl 5 Mg Tablet) 5 mg PO TID PRN PRN Reason: Muscle Spasm Last Admin: 03/16/25 11:12 Dose: 5 mg Documented By: ANGELINA Enoxaparin Sodium (Enoxaparin Sodium 40 Mg/0.4 Ml Syringe) 40 mg SUBCUT Q24H [facility] Last Admin: 03/17/25 08:17 Dose: 40 mg Documented By: MARII Lactated Ringer's (Lr) 1,000 mls @ 80 mls/hr IVCONT .[id number] [facility] Last Admin: 03/17/25 09:17 Dose: Not Given Documented By: MARII Non-Admin Reason: IV Running Ibuprofen (Ibuprofen 600 Mg Tablet) 600 mg PO Q8H PRN PRN Reason: Pain, Moderate(Pain Scale 4-6) Last Admin: 03/17/25 05:34 Dose: 600 mg Documented By: JOAN Magnesium Hydroxide (Milk Of Magnesia 30 Ml Oral.Susp) 30 ml PO DAILY PRN PRN Reason: Constipation Melatonin (Melatonin 3 Mg Tablet) 3 mg PO BEDTIME PRN PRN Reason: Insomnia Naloxone HCl (Naloxone Hcl 0.4 Mg/Ml Vial) 0.1 mg IVPUSH Q2M PRN PRN Reason: Respiratory Rate < 10 Omeprazole (Omeprazole 20 Mg Capsule.Dr) 20 mg PO DAILY@0630 [facility] Last Admin: 03/17/25 05:34 Dose: 20 mg Documented By: JOAN Ondansetron HCl (Ondansetron Hcl 4 Mg/2 Ml Vial) 4 mg IVPUSH Q8H PRN PRN Reason: Nausea and Vomiting Oxycodone HCl (Oxycodone Hcl Immed Release 5 Mg Tablet) 5 mg PO Q4H PRN PRN Reason: Pain, Severe (Pain Scale 7-10) Last Admin: 03/17/25 08:16 Dose: 5 mg Documented By: MARII Polyethylene Glycol (Polyethylene Glycol 3350 17 Gm Powd.Pack) 17 gm PO DAILY [facility] Last Admin: 03/17/25 08:16 Dose: 17 gm Documented By: MARII Prednisone (Prednisone 20 Mg Tablet) 60 mg PO DAILY [facility] Last Admin: 03/17/25 08:16 Dose: 60 mg Documented By: MARII Sodium Chloride (0.9 % Sodium Chloride Flush 3 Ml Syringe) 3 ml IVFLUSH QSHIFT [facility] Last Admin: 03/17/25 08:20 Dose: Not Given Documented By: MARII Non-Admin Reason: IV Running Labs 03/16/25 05:31 03/14/25 15:14 Assessment and Plan (1) Intractable low back pain: Status: Acute Plan A 64-year-old female with a history of bilateral hip arthroplasty and no reported chronic medical conditions presents with [id number] left-sided low back pain radiating to the left leg, worsened by movement. She has had multiple recent lifting and twisting injuries. On exam, she is alert, oriented, and in no acute distress, with normal neurological findings. Her pain has not responded to several analgesics and muscle relaxants, but she experienced some relief after receiving Decadron. Despite this, she remains unable to walk because of the severity of her pain. Incidentally, she is found to have transaminitis and extrahepatic ductal dilatation on imaging, but no abdominal pain. Acute on chronic lower back pain pain primarily in left glute/SI join area continue PT, muscle relaxers, moist heat, NSAIDs. attempt to transition to all po meds Leukocytosis The patient has been afebrile. Infectious etiology negative thus far. may be due to steroids Asymptomatic transaminitis trending down. no abdominal pain. abdominal US negative. hepatitis profile negative. Follow-up with primary companion caregiver/GI for close monitoring and management. Avoid hepatotoxic agents. Severe stenosis of the right common iliac artery origin: outpatient referral to vascular surgery VTE: Lovenox Code: Full code Quality Stroke Does the patient have a stroke diagnosis?: No VTE Prior VTE?: No VTE Risk Level:: Medical - moderate - high VTE Device Contraindication: Treatment Not Indicated VTE Drug Contraindication: N/A - Med Ordered
[2025-03-17 12:16] VITALS: BP 137/59; PULSE 77; RESP 18; TEMP 36.2; O2SAT 97
[2025-03-17 15:41] VITALS: BP 118/60; PULSE 79; RESP 18; TEMP 36.2; O2SAT 97
[2025-03-17 19:27] VITALS: BP 141/86; PULSE 99; RESP 18; TEMP 36.4; O2SAT 98
[2025-03-18] VITALS: BP 138/80; PULSE 98; RESP 18; TEMP 36.3
[2025-03-18 04:00] VITALS: BP 135/60; PULSE 71; RESP 18; TEMP 36.3; O2SAT 98
[2025-03-18] MEDS: oxyCODONE HCl Immed Release 5 MG TABLET PO (04:35)
[2025-03-18 06:37] VITALS: BP 138/70; PULSE 71; RESP 16; TEMP 36.6; O2SAT 98
--- NOTE | 2025-03-18 09:16 | PM.DS ---
DS: Providers Provider Date of admission: 03/15/25 01:43 Date of discharge: 03/18/25 Primary care physician: Jim Bedoya MD DS: Diagnosis Discharge Diagnosis (1) Intractable low back pain: Status: Acute DS: Summary Hospital Course Hospital Course: History and physical as per admitting provider. A 64-year-old female presented to the emergency department with a 5-day history of progressively worsening lower back pain, primarily localized to the gluteal area. The pain is described as sharp, rated 7?10 out of 10, radiating down the posterior aspect of her leg, and is aggravated by walking. She initially injured her lower back several weeks ago while performing outdoor work, and more recently, she missed a step on the stairs at home, resulting in an ankle twist and a fall while lifting heavy objects. The pain have led to decreased mobility and disrupted sleep. At the time of assessment, her pain had improved to 6/10 following administration of 4 mg IV Decadron. Denied bowel or bladder incontinence, chill, fever and progressive neurological deficits. Pain was resistant to multiple analgesics and muscle relaxants given earlier during her ED stay. Laboratory: WBC 12.9, platelets 440. Transaminitis AST 109 U/L and ALT 272 U/L; bilirubin within normal limits. Renal function is preserved and electrolytes are unremarkable. Urinalysis is notable for high specific gravity (>=.030), trace ketones, and trace blood, but otherwise unremarkable. ESR, CRP are not elevated. Imaging: CT abdo and pelvis: Moderate intrahepatic biliary ductal dilatation. No radiopaque choledocholithiasis identified. Consider MRCP for further characterization. Distal colonic diverticulosis without evidence of diverticulitis. Thickening of the mucosa of the distal sigmoid colon favored to represent diverticulosis coli. Recommend correlation with recent colonoscopy. Abdo US: Cholecystectomy. Common bile duct is normal in caliber. 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 Otherwise, no evidence of aortic dissection or acute aortic syndrome. 64-year-old woman treated for acute on chronic lower back pain likely sciatica. She was treated with physical therapy, muscle relaxers, oxycodone, heat and NSAIDs. Plan will be for patient to follow up with the physical therapy at home. She can continue oxycodone, Flexeril and ibuprofen for a few more days. She should follow up with the primary care provider if she continues to have this pain and is in need of further medication management. Incidental finding of stenosis of the right iliac artery. Patient should follow up with vascular surgery outpatient. Asymptomatic transaminitis. Trended down. No abdominal pain, negative ultrasound, hepatitis profile negative. Patient can follow up with the primary care provider if she needs further workup of this. Leukocytosis. Patient was afebrile with no infectious source. This was likely secondary to steroid use. Time Attestation Discharge Coordination Time (in mins): 45 Quality: Safe Use of Opioids Does Pt have an Active Cancer Diagnosis on the Problem List?: No Quality: Stroke Does the patient have a stroke diagnosis?: No Physical Exam Exam: Exam: Appearing in no acute distress head is normocephalic atraumatic eyes pupils are PERRLA sclera is anicteric mouth throat mucous membranes are intact and moist neck is supple no lymphadenopathy, no JVD noted lung sounds are clear to auscultation heart regular rate rhythm, clear S1, S2 positive bowel sounds, abdomen is soft, nontender neuro patient is alert x3, no focal deficits Vital Signs: Vital Signs: Last Vital Signs Temp 98 F 03/18/25 06:37 Pulse 71 03/18/25 06:37 Resp 16 03/18/25 06:37 BP 138/70 03/18/25 06:37 Pulse Ox 98 03/18/25 06:37 O2 Del Method Room Air 03/18/25 06:37 BMI result Body Mass Index 18.8 Discharge Plan Discharge Anticipated Discharge Date/Time: 03/18/25 09:10 Patient Disposition: Home Health Service Discharge Diagnosis: Intractable back pain Referrals: Farhat Tellez MD [Physician, Vascular Surgery] - 1 Week Referral Note: 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 Jim Bedoya MD [Primary Care Provider, Internal Medicine] - 1 Week Discharge Medications: New prednisone 20 mg Tablet 40 mg PO DAILY Qty: 8 0RF omeprazole 20 mg Capsule,Delayed Release(Dr/Ec) 20 mg PO DAILY@0630 Qty: 30 0RF ibuprofen 600 mg Tablet 600 mg PO Q8H PRN (Reason: Pain, Moderate(Pain Scale 4-6)) Qty: 15 0RF oxycodone 5 mg Tablet 5 mg PO Q8H PRN (Reason: Pain, Severe (Pain Scale 7-10)) Qty: 15 0RF Rx Instructions: Partial Fill upon patient request. cyclobenzaprine 5 mg Tablet 5 mg PO TID PRN (Reason: Muscle Spasm) Qty: 15 0RF Discharge Orders: Discharge Order (Routine); Ordered 03/18/25 Ordered By: Alison Carter Diet: Advance to usual diet Activity on Discharge: As tolerated Stand Alone Forms: Patient Portal Discharge page Print Language: [place] Care Plan Goals: Follow up with vascular surgery for stenosis of the right common iliac artery Physical therapy for therapeutic exercises for back pain and likely sciatic pain Health Concerns: Intractable back pain Plan of Treatment: Follow up with primary care provider as needed Take all medications as prescribed Assessment: See discharge summary Patient Instructions: Sciatica (DC)
--- NOTE | 2025-03-18 10:20 | MHC.CM.PN ---
PT NOW MEDICALLY CLEARED, SHE IS UNABLE TO HAVE VNA DUE TO LACK OF INSURANCE AND PCP [facility] IS WORKING WITH PT TO GET INSURANCE ACTIVE, BUT IT WILL LIKELY BE FOR THE NEW YEAR PT ARRANGED HER OWN TRANSPORTATION
== END 2025-03-18 10:08 | disposition home health service (06) ==
LOC: HO.ED 03-15 01:33 → HO.EDOVER 03-15 02:44 → HO.S3 03-15 03:25
PROVIDERS: Physician Assistant Medical; Admitting Provider Family Medicine; Emergency Provider Student in an Organized Health Care Education/Training Program; PCP Internal Medicine; Visit Provider Nurse Practitioner Acute Care
DX: M54.50 Low back pain, unspecified (principal); M76.02 Gluteal tendinitis, left hip; I77.1 Stricture of artery; D72.829 Elevated white blood cell count, unspecified; R74.01 Elevation of levels of liver transaminase levels; M25.572 Pain in left ankle and joints of left foot; R10.A0 Flank pain, unspecified side; K57.90 Diverticulosis of intestine, part unspecified, without perforation or abscess without bleeding; Z79.899 Other long term (current) drug therapy
CPT/HCPCS: 36415; 73610; 73630; 74174; 74177; 76705; 80053; 80076; 81001; 82550; 85025; 85652; 86140; 86704; 86706; 86709; 86803; 87340; 96361; 96372; 96374; 96375; 96376; 97110; 97116; 97140; 97161; 99221; 99285; J1100; J1171; J1650; J1885; J2405; J3360; J7120; Q9967

== ENCOUNTER → 2025-03-14 14:21 | Outpatient (BNV) | payer SELFPAY | PROVIDERS: PCP Internal Medicine; Visit Provider Radiology Diagnostic Radiology | DX: I70.8 Atherosclerosis of other arteries (principal); K57.30 Diverticulosis of large intestine without perforation or abscess without bleeding; K83.8 Other specified diseases of biliary tract; Z03.89 Encounter for observation for other suspected diseases and conditions ruled out; M25.572 Pain in left ankle and joints of left foot; M79.672 Pain in left foot | CPT/HCPCS: 73610; 73630; 74174; 74177; 76705 ==

== ENCOUNTER → 2025-03-15 01:43 | Outpatient (BNV) | payer SELFPAY | PROVIDERS: Admitting Provider Family Medicine; Emergency Provider Student in an Organized Health Care Education/Training Program; PCP Internal Medicine; Visit Provider Family Medicine | DX: M54.59 Other low back pain (principal) | CPT/HCPCS: 99222; 99232; 99499 ==